=== PATIENT | female | born 1960 | race Caucasian/White ===

== ENCOUNTER → 2018-05-08 | Outpatient (CLI) | payer OTHER ==
[~2018-05-08] MED LIST: ABILIFY15 MG PO; CLONAZEPAM 0.50.5 M1 PO; HYDROCODONE-AP1 EAC6 PO; LEVAQUIN 750 M750 MG PO; NORCO 5-325 TA1 EACH PO; OMEPRAZOLE40 MG PO; PREDNISONE 20 M20 MG PO; PROZAC20 MG PO; REMERON15 MG PO; SEROQUEL 50 MG50 MG PO
== END ==
LOC: RAD 10:56
DX: M41.86 Other forms of scoliosis, lumbar region (principal)

== ENCOUNTER → 2018-06-04 | Outpatient (CLI) | payer OTHER | LOC: MRI 10:10 | DX: S32.020D Wedge compression fracture of second lumbar vertebra, subsequent encounter for fracture with routine healing (principal); M51.27 Other intervertebral disc displacement, lumbosacral region; R63.4 Abnormal weight loss; R60.0 Localized edema; X58.XXXD Exposure to other specified factors, subsequent encounter ==

== ENCOUNTER → 2018-10-24 | Outpatient (CLI) | payer OTHER | LOC: MRI 07:27 | DX: M48.56XD Collapsed vertebra, not elsewhere classified, lumbar region, subsequent encounter for fracture with routine healing (principal); M47.818 Spondylosis without myelopathy or radiculopathy, sacral and sacrococcygeal region; J43.9 Emphysema, unspecified; R63.4 Abnormal weight loss; J98.4 Other disorders of lung ==

== ENCOUNTER → 2020-03-05 | Outpatient (CLI) | payer OTHER | LOC: ULTRA 09:25 | PROVIDERS: ATTEND Family Medicine | DX: I65.29 Occlusion and stenosis of unspecified carotid artery (principal); I25.2 Old myocardial infarction; Z86.73 Personal history of transient ischemic attack (TIA), and cerebral infarction without residual deficits; Z87.898 Personal history of other specified conditions ==